=== PATIENT | female | born 1965 | race Caucasian/White ===

== ENCOUNTER 2018-09-29 08:40 | Emergency (ER) | payer OTHER ==
[~2018-09-29] VITALS: Ht 154.9 cm; Wt 63.0 kg
[~2018-09-29 08:40] MED LIST: ATOR40TA PO; Flovent Diskus50 MCG; GLIP10 PO; GLYB2.5 PO; HYDACE5 PO; INSULANPEN SC; INSULIN; LISI5 PO; METF500 PO; NAPR500 PO; PHENA200 PO; SULTRIDS PO
[2018-09-29] MEDS ORDERED: GEMF600 PO (09:00)
[2018-09-29] MEDS ORDERED: CARV6.25 (09:01)
[2018-09-29 09:36] LABS: BASOPHILS ABSOLUTE AUTO 0.07 K/mm3 (0.00-0.23); BASOPHILS PERCENT AUTO 1 % (0-2); EOSINOPHILS ABSOLUTE AUTO 0.12 K/mm3 (0.00-0.68); EOSINOPHILS PERCENT AUTO 1 % (0-6); Hematocrit 34.9 % (33.0-51.0); Hemoglobin 11.4 g/dL (11.5-16.0); IMMATURE GRAN ABSOLUTE AUTO 0.06 K/mm3 (0.00-0.10); IMMATURE GRAN PERCENT AUTO 1 % (0-1); LYMPHOCYTES ABSOLUTE AUTO 1.16 K/mm3 (0.84-5.20); LYMPHOCYTES PERCENT AUTO 10 % (21-46); MONOCYTES ABSOLUTE AUTO 0.94 K/mm3 (0.16-1.47); MONOCYTES PERCENT AUTO 8 % (4-13); Mean Corpuscular HGB 29.3 pg (26.0-34.0); Mean Corpuscular HGB Conc 32.7 g/dL (31.5-36.5); Mean Corpuscular Volume 90 fL (80-100); Mean Platelet Volume 9.2 fL (9.1-12.4); NEUTROPHILS ABSOLUTE AUTO 9.31 K/mm3 (1.96-9.15); NEUTROPHILS PERCENT AUTO 80 % (41-73); Platelet Count 375 K/mm3 (150-400); RDW Standard Deviation 42.5 fL (35.1-46.3); Red Blood Cell Count 3.89 M/mm3 (3.80-5.20); White Blood Cell Count 11.66 K/mm3 (4.00-11.30)
[2018-09-29 09:55] LABS: Albumin, Blood 3.1 g/dL (3.4-5.0); Albumin/Globulin Ratio 0.7 (0.8-1.8); Bilirubin, Total 0.3 mg/dL (0.1-1.0); Bun/Creatinine Ratio 20.7 (12.0-20.0); Creatinine, Blood 1.21 mg/dL (0.40-1.00); Globulin, Blood 4.6 g/dL (2.2-4.0); Potassium, Blood 4.7 mmol/L (3.5-5.5); Total Protein, Blood 7.7 g/dL (6.4-8.2)
[2018-09-29] MEDS ORDERED: Augmentin 875-1 EACH PO (10:06)
== END 2018-09-29 10:54 | disposition home or self-care (01) ==
LOC: ER 08:40
PROVIDERS: Internal Medicine
DX: J01.90 Acute sinusitis, unspecified (principal); E78.5 Hyperlipidemia, unspecified; I10 Essential (primary) hypertension; E11.9 Type 2 diabetes mellitus without complications; Z88.8 Allergy status to other drugs, medicaments and biological substances; Z79.4 Long term (current) use of insulin; Z79.899 Other long term (current) drug therapy; Z87.891 Personal history of nicotine dependence; Z88.5 Allergy status to narcotic agent
CPT/HCPCS: 36415; 71046; 80053; 85025; 93005; 93010; 99284-25; J0456; J7050

== ENCOUNTER → 2018-11-16 | Outpatient (CLI) | payer OTHER ==
[~2018-11-16] MED LIST changes: +Augmentin 875-1 EACH PO; +CARV6.25; +GEMF600 PO
[2018-11-18 13:28] LABS: Creatinine Urine 51.4 mg/dL (27.00-270.00)
== END | disposition home or self-care (01) ==
LOC: LAB SHORT 07:00 → LAB 07:00 → LAB SHORT 11-18 12:56
PROVIDERS: Internal Medicine
DX: N17.9 Acute kidney failure, unspecified (principal); R80.9 Proteinuria, unspecified
CPT/HCPCS: 81050; 82570; 84300

== ENCOUNTER → 2019-02-07 | Outpatient (CLI) | payer OTHER ==
[2019-02-07 10:42] LABS: Hematocrit 32.3 % (33.0-51.0); Hemoglobin 10.9 g/dL (11.5-16.0)
[2019-02-07 10:55] LABS: Albumin, Blood 2.8 g/dL (3.4-5.0); Anion Gap 7 mmol/L (6-16); Blood Urea Nitrogen 16 mg/dL (8-24); Bun/Creatinine Ratio 23.2 (12.0-20.0); CO2, Blood 28 mmol/L (21-32); Calcium, Blood 9.1 mg/dL (8.5-10.1); Chloride, Blood 107 mmol/L (98-108); Creatinine, Blood 0.69 mg/dL (0.40-1.00); Glomerular Filtration Rate >60 (60-); Glucose, Blood 75 mg/dL (70-99); Phosphorus, Blood 4.7 mg/dL (2.5-4.9); Potassium, Blood 3.9 mmol/L (3.5-5.5); Sodium, Blood 142 mmol/L (136-145)
[2019-02-07 12:44] LABS: Creatinine, Urine Random 66.1 mg/dL (27.00-270.00)
== END | disposition home or self-care (01) ==
LOC: LAB EV 09:34 → LAB SHORT 09:34
PROVIDERS: Internal Medicine
DX: N17.9 Acute kidney failure, unspecified (principal)
CPT/HCPCS: 36415; 80069; 82570; 84156; 85014; 85018

== ENCOUNTER → 2019-02-10 | Outpatient (CLI) | payer OTHER ==
[2019-02-10 15:06] LABS: Creatinine Urine 42.5 mg/dL (27.00-270.00); Protein, Urine Quantitative 214.5 mg/dL (0.0-11.9)
== END | disposition home or self-care (01) ==
LOC: LAB SHORT 13:22 → LAB 13:22
PROVIDERS: Internal Medicine
DX: N17.9 Acute kidney failure, unspecified (principal)
CPT/HCPCS: 81050; 82570; 84156

== ENCOUNTER → 2020-02-15 | Outpatient (CLI) | payer OTHER ==
[2020-02-17 15:09] LABS: HPV 16 Negative (Negative); HPV 18 Negative (Negative); HPV OTHER HR TYPES Negative (Negative)
== END ==
LOC: LAB 17:13 → LAB SHORT 17:13
PROVIDERS: Nurse Practitioner Family
DX: Z12.4 Encounter for screening for malignant neoplasm of cervix (principal); Z11.51 Encounter for screening for human papillomavirus (HPV)
CPT/HCPCS: 87624; G0123

== ENCOUNTER → 2020-08-29 | Outpatient (CLI) | payer OTHER ==
[~2020-08-29] MED LIST changes: +BASAGLAR K100 UNIT/1 SC; +LISI20 PO; +OZEMPIC0.25 MG/0. SC
[2020-08-29 11:35] LABS: Protein, Urine Quantitative 191.3 mg/dL (0.0-11.9)
== END | disposition home or self-care (01) ==
LOC: LAB 07:59 → LAB SHORT 07:59
PROVIDERS: Internal Medicine
DX: R80.8 Other proteinuria (principal)
CPT/HCPCS: 81050; 84156

== ENCOUNTER → 2023-07-16 | Outpatient (CLI) | payer OTHER ==
[2023-07-16 08:03] LABS: BASOPHILS ABSOLUTE AUTO 0.05 K/mm3 (0.00-0.23); BASOPHILS PERCENT AUTO 1 % (0-2); EOSINOPHILS ABSOLUTE AUTO 0.09 K/mm3 (0.00-0.68); EOSINOPHILS PERCENT AUTO 1 % (0-6); Hematocrit 37.9 % (33.0-51.0); Hemoglobin 12.6 g/dL (11.5-16.0); IMMATURE GRAN ABSOLUTE AUTO 0.04 K/mm3 (0.00-0.10); IMMATURE GRAN PERCENT AUTO 1 % (0-1); LYMPHOCYTES ABSOLUTE AUTO 1.29 K/mm3 (0.84-5.20); LYMPHOCYTES PERCENT AUTO 15 % (21-46); MONOCYTES ABSOLUTE AUTO 0.61 K/mm3 (0.16-1.47); MONOCYTES PERCENT AUTO 7 % (4-13); Mean Corpuscular HGB 29.1 pg (26.0-34.0); Mean Corpuscular HGB Conc 33.2 g/dL (31.5-36.5); Mean Corpuscular Volume 88 fL (80-100); Mean Platelet Volume 9.1 fL (9.1-12.4); NEUTROPHILS ABSOLUTE AUTO 6.43 K/mm3 (1.96-9.15); NEUTROPHILS PERCENT AUTO 75 % (41-73); Platelet Count 281 K/mm3 (150-400); RDW Coefficient Variation 13.3 % (11.7-14.2); RDW Standard Deviation 42.9 fL (35.1-46.3); Red Blood Cell Count 4.33 M/mm3 (3.80-5.20); White Blood Cell Count 8.51 K/mm3 (4.00-11.30)
[2023-07-16 09:06] LABS: Albumin, Blood 3.2 g/dL (3.4-5.0); Albumin/Globulin Ratio 0.9 (0.8-1.8); Bilirubin, Total 0.3 mg/dL (0.1-1.0); Bun/Creatinine Ratio 18.3 (12.0-20.0); Creatinine, Blood 1.2 mg/dL (0.40-1.00); Globulin, Blood 3.6 g/dL (2.2-4.0); Potassium, Blood 4.3 mmol/L (3.5-5.5); Total Protein, Blood 6.8 g/dL (6.4-8.2)
== END | disposition home or self-care (01) ==
LOC: LAB 07:58 → LAB SHORT 07:58
PROVIDERS: Chiropractor
DX: R07.89 Other chest pain (principal)
CPT/HCPCS: 80053; 84484; 85025

== ENCOUNTER 2025-07-06 10:30 | Inpatient (IN) | payer OTHER ==
[~2025-07-06] VITALS: Ht 154.9 cm; Wt 60.5 kg
[2025-07-06] VITALS (13 sets, daily range): BP systolic 148–201; BP diastolic 98–137
[~2025-07-06 10:30] MED LIST changes: -INSULANI
[2025-07-06] MEDS ORDERED: INSULANI (12:07)
[2025-07-06] MEDS ORDERED: FLU VACC TS2025-26(6MOS UP)/PF 45 MCG/0.5 ML SYRINGE IM SCH (12:25)
[2025-07-06] MEDS ORDERED: Metoprolol Tartrate 1 MG/ML 5 ML VIAL IV ONE (13:00)
[2025-07-06 13:15] LABS: Anti-Xa UFH, PHA Monitoring <0.10 IU/mL; Prothrombin Time Results 10.8 Sec (9.7-11.5)
[2025-07-06] MEDS ORDERED: Midazolam HCl 1MG / ML 2ML Vial IV PRN (13:25)
[2025-07-06] MEDS ORDERED: Dose Adjust by Pharmacy XX STA ×2 (13:28→15:20)
[2025-07-06] MEDS ORDERED: Heparin Sodium 5000 Units/ML 1ML MDV IV ONE (13:30)
[2025-07-06] MEDS ORDERED: FentaNYL Citrate 50 MCG/ML 2 ML Injection IV PRN (13:30)
[2025-07-06] MEDS ORDERED: Heparin Sodium,Porcine/0.5 NS 500 ML IV SCH (13:30)
[2025-07-06] MEDS ORDERED: Heparin Sodium 1000 Units/ML 10ML MDV ONE (13:35)
[2025-07-06] MEDS ORDERED: NS 250 ML IV ONE (13:35)
[2025-07-06] MEDS ORDERED: Verapamil HCL 2.5 MG/ML 2ML Injection ONE (13:35)
[2025-07-06] MEDS ORDERED: NS 1,000 ML IV ONE ×2 (13:35→13:50)
[2025-07-06] MEDS ORDERED: Nitroglycerin 2 MG/20 ML BTL ONE (13:35)
[2025-07-06] MEDS ORDERED: Nitroglycerin 1 INCH/GM PKT TOP SCH (14:00)
[2025-07-06] MEDS ORDERED: Midazolam HCl 1MG / ML 2ML Vial ONE (14:18)
[2025-07-06] MEDS ORDERED: FentaNYL Citrate 50 MCG/ML 2 ML Injection ONE (14:18)
[2025-07-06] MEDS ORDERED: NS 250 ML IV SCH (15:05)
[2025-07-06 15:39] LABS: CHOL/HDL RATIO 5.5; Cholesterol 290 mg/dL (50-200); HDL Cholesterol 53 mg/dL (>39); LDL/HDL RATIO 3.4; Low Density Lipoprotein Chol 179 mg/dL (0-110); Triglycerides 292 mg/dL (30-160); Very Low Density Lipoprot Chol 58 mg/dL (6-32)
--- NOTE | 2025-07-06 16:17 | NUR ---
[facility], TR band in place on the right wrist. Site is without bleeding, hematoma, bruising nor swelling, as it has been since her arrival. She denies any pain in the arm or hand. fingers are warm, with brisk cap refill. She denies any chest pain/discomfort/tightness/pressure, no dyspnea nor shortness of breath. Sinus rhythm noted on monitor, 70 bpm. Blood pressure is high, 175/101. Spo2 98%.
[2025-07-06] MEDS ORDERED: Insulin Human Lispro 100 Units/ML 3ML Syringe SC SCH (16:30)
--- NOTE | 2025-07-06 18:14 | NUR ---
blood pressure was normalizing, but has become elevated again. 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 Next ntg patch scheduled for 2099, but given now; also given scheduled IV lasix at this time.
[2025-07-06] MEDS ORDERED: HydrALAZINE HCl 20 MG / ML 1ML Vial ONE (18:27)
[2025-07-06] MEDS ORDERED: HydrALAZINE HCl 20 MG / ML 1ML Vial IV ONE (18:35)
--- NOTE | 2025-07-06 18:43 | NUR ---
Telephone report given to Michi at [facility] at this time. Expecting transport to arrive at any time. Dr. Rodriguez was here at 1820 to talk with the patient and her about the reason for transfer.
--- NOTE | 2025-07-06 18:53 | NUR ---
TR band is fully deflated. Site remains WNL.
--- NOTE | 2025-07-06 19:53 | NUR ---
PATIENT TAKEN BY MEDICAL TRANSPORT FOR TRANSFER TO [facility]. PATIENT ALERT AND ORIENTED X4, DENIES CHEST PAIN. TR BAND REMOVED WITH NO SIGNS OF BLEEDING. PATIENT TRANSFERRED ON HEPARIN DRIP.
== END 2025-07-06 19:49 | disposition short-term general hospital (02) | DRG 280 ==
LOC: ER 10:30 → PCU 12:19
PROVIDERS: ADMIT Student in an Organized Health Care Education/Training Program
PROC: B2111ZZ Fluoroscopy of Multiple Coronary Arteries using Low Osmolar Contrast (ICD-10-PCS; principal; 2025-07-06)
PROC: 3E02340 Introduction of Influenza Vaccine into Muscle, Percutaneous Approach (ICD-10-PCS; 2025-07-06)
DX: I21.4 Non-ST elevation (NSTEMI) myocardial infarction (principal); I50.31 Acute diastolic (congestive) heart failure; E87.20 Acidosis, unspecified; I13.0 Hypertensive heart and chronic kidney disease with heart failure and stage 1 through stage 4 chronic kidney disease, or unspecified chronic kidney disease; N18.4 Chronic kidney disease, stage 4 (severe); I16.1 Hypertensive emergency; N17.9 Acute kidney failure, unspecified; E11.22 Type 2 diabetes mellitus with diabetic chronic kidney disease; E78.5 Hyperlipidemia, unspecified; I25.10 Atherosclerotic heart disease of native coronary artery without angina pectoris; Z79.85 Long-term (current) use of injectable non-insulin antidiabetic drugs; Z79.899 Other long term (current) drug therapy; Z79.4 Long term (current) use of insulin; Z79.84 Long term (current) use of oral hypoglycemic drugs; Z98.891 History of uterine scar from previous surgery; Z98.41 Cataract extraction status, right eye; Z98.42 Cataract extraction status, left eye; Z87.891 Personal history of nicotine dependence; Z88.8 Allergy status to other drugs, medicaments and biological substances; Z88.5 Allergy status to narcotic agent; Z23 Encounter for immunization
CPT/HCPCS: 76937; 80061; 82947; 83880; 84484; 85520; 85610; 85730; 93005; 93010; 93458; 94762; 96374-59; 99152; 99285-25; A9270; C1769; C1894; C8929; J0360; J1644; J1938; J2250; J3010; J7030; J7050; Q9957; Q9967

== ENCOUNTER → 2025-07-06 | Outpatient (CLI) | payer OTHER ==
[~2025-07-06] MED LIST changes: +INSULANI
[2025-07-06 08:30] LABS: BASOPHILS ABSOLUTE AUTO 0.04 K/mm3 (0.00-0.23); BASOPHILS PERCENT AUTO 1 % (0-2); EOSINOPHILS ABSOLUTE AUTO 0.19 K/mm3 (0.00-0.68); EOSINOPHILS PERCENT AUTO 2 % (0-6); Hematocrit 33.4 % (33.0-51.0); Hemoglobin 10.9 g/dL (11.5-16.0); IMMATURE GRAN ABSOLUTE AUTO 0.04 K/mm3 (0.00-0.10); IMMATURE GRAN PERCENT AUTO 1 % (0-1); LYMPHOCYTES ABSOLUTE AUTO 1.11 K/mm3 (0.84-5.20); LYMPHOCYTES PERCENT AUTO 14 % (21-46); MONOCYTES ABSOLUTE AUTO 0.63 K/mm3 (0.16-1.47); MONOCYTES PERCENT AUTO 8 % (4-13); Mean Corpuscular HGB Conc 32.6 g/dL (31.5-36.5); Mean Corpuscular Volume 86 fL (80-100); NEUTROPHILS ABSOLUTE AUTO 6.21 K/mm3 (1.96-9.15); NEUTROPHILS PERCENT AUTO 76 % (41-73); NRBC ABSOLUTE 0.00 K/mm3 (0.00-0.02); NRBC Auto 0.0 /100 WBC (0.0-0.2); Platelet Count 273 K/mm3 (150-400); RDW Coefficient Variation 14.0 % (11.7-14.2); RDW Standard Deviation 43.6 fL (35.1-46.3)
[2025-07-06 10:14] LABS: Alanine Aminotransfer (ALT/SGP 35.0 U/L (12-78); Albumin, Blood 2.9 g/dL (3.4-5.0); Albumin/Globulin Ratio 0.8 (0.8-1.8); Anion Gap 12.0 mmol/L (3-11); Aspartate Aminotrans (AST/SGOT 28.0 U/L (12-37); Bilirubin, Total 0.3 mg/dL (0.1-1.0); Blood Urea Nitrogen 41.0 mg/dL (8-24); CO2, Blood 20.0 mmol/L (21-32); Calcium, Blood 8.9 mg/dL (8.5-10.1); Chloride, Blood 113.0 mmol/L (98-108); Creatinine, Blood 3.27 mg/dL (0.40-1.00); Globulin, Blood 3.7 g/dL (2.2-4.0); Glucose, Blood 107.0 mg/dL (70-99); Potassium, Blood 4.5 mmol/L (3.5-5.5); Sodium, Blood 140.0 mmol/L (136-145); Thyroid Stimulating Hormone 2.31 uIU/mL (0.360-4.800); Total Protein, Blood 6.6 g/dL (6.4-8.2)
== END | disposition home or self-care (01) ==
LOC: LAB SHORT 08:24 → LAB 08:24
PROVIDERS: Physician Assistant
DX: R53.83 Other fatigue (principal)
CPT/HCPCS: 80053; 83036; 84443; 84484; 85025; 85379

== ENCOUNTER 2025-07-19 07:28 | Inpatient (IN) | payer OTHER ==
[~2025-07-19] VITALS: Ht 154.9 cm; Wt 62.0 kg
[~2025-07-19 07:28] MED LIST changes: -ATOR40TA PO; +ATOR80 PO; +INSULANI SC
[2025-07-19] MEDS ORDERED: Nitroglycerin 1 INCH/GM PKT TOP ONE (07:40)
[2025-07-19 07:55] LABS: BASOPHILS ABSOLUTE AUTO 0.06 K/mm3 (0.00-0.23); BASOPHILS PERCENT AUTO 1 % (0-2); EOSINOPHILS ABSOLUTE AUTO 0.30 K/mm3 (0.00-0.68); EOSINOPHILS PERCENT AUTO 3 % (0-6); Hematocrit 27.9 % (33.0-51.0); Hemoglobin 9.0 g/dL (11.5-16.0); IMMATURE GRAN ABSOLUTE AUTO 0.03 K/mm3 (0.00-0.10); IMMATURE GRAN PERCENT AUTO 0 % (0-1); LYMPHOCYTES ABSOLUTE AUTO 0.96 K/mm3 (0.84-5.20); LYMPHOCYTES PERCENT AUTO 11 % (21-46); MONOCYTES ABSOLUTE AUTO 0.87 K/mm3 (0.16-1.47); MONOCYTES PERCENT AUTO 10 % (4-13); Mean Corpuscular HGB Conc 32.3 g/dL (31.5-36.5); Mean Corpuscular Volume 89 fL (80-100); NEUTROPHILS ABSOLUTE AUTO 6.73 K/mm3 (1.96-9.15); NEUTROPHILS PERCENT AUTO 75 % (41-73); NRBC ABSOLUTE 0.00 K/mm3 (0.00-0.02); NRBC Auto 0.0 /100 WBC (0.0-0.2); Platelet Count 283 K/mm3 (150-400); RDW Coefficient Variation 14.7 % (11.7-14.2); RDW Standard Deviation 46.4 fL (35.1-46.3)
[2025-07-19 08:28] LABS: Alanine Aminotransfer (ALT/SGP 57.0 U/L (12-78); Albumin, Blood 3.0 g/dL (3.4-5.0); Albumin/Globulin Ratio 0.9 (0.8-1.8); Anion Gap 10.0 mmol/L (3-11); Aspartate Aminotrans (AST/SGOT 19.0 U/L (12-37); Bilirubin, Total 0.4 mg/dL (0.1-1.0); Blood Urea Nitrogen 66.0 mg/dL (8-24); CO2, Blood 22.0 mmol/L (21-32); Calcium, Blood 8.5 mg/dL (8.5-10.1); Chloride, Blood 109.0 mmol/L (98-108); Creatinine, Blood 4.01 mg/dL (0.40-1.00); Globulin, Blood 3.4 g/dL (2.2-4.0); Glucose, Blood 226.0 mg/dL (70-99); Potassium, Blood 4.7 mmol/L (3.5-5.5); Sodium, Blood 136.0 mmol/L (136-145); Total Protein, Blood 6.4 g/dL (6.4-8.2)
[2025-07-19] MEDS ORDERED: FLU VACC TS2025-26(6MOS UP)/PF 45 MCG/0.5 ML SYRINGE IM SCH ×2 (11:10→11:25)
[2025-07-19] MEDS ORDERED: Albuterol 2.5 MG/3 ML VIAL INH SCH (12:00)
[2025-07-19 12:50] LABS: Influenza A/2009-H1 Not Detected (NOT DETECT); SARS-Cov-2 (COVID-19), BioFire Not Detected (NOT DETECT)
[2025-07-19 13:25] VITALS: BP 155/89
[2025-07-19] MEDS ORDERED: AMLODIPINE BESYL5 MG PO (13:30)
[2025-07-19] MEDS ORDERED: Aspir 8181 MG PO (13:31)
[2025-07-19] MEDS ORDERED: CARVEDILOL6.25 MG PO (13:32)
[2025-07-19] MEDS ORDERED: PLAVIX75 MG PO (13:33)
[2025-07-19] MEDS ORDERED: FAMO20 PO (13:35)
[2025-07-19] MEDS ORDERED: FUROSEMIDE40 MG PO (13:35)
[2025-07-19] MEDS ORDERED: ISOSORBIDE MONO30 MG PO (13:36)
[2025-07-19] MEDS ORDERED: NITROGLYCERIN0.4 M3 SL (13:37)
[2025-07-19] MEDS ORDERED: SODBIC650 PO (13:38)
[2025-07-19] MEDS ORDERED: HYDRA50 PO (13:38)
[2025-07-19] MEDS ORDERED: ROPINIROLE HC0.2510 PO (13:44)
[2025-07-19] MEDS ORDERED: Heparin Sodium,Porcine 5,000 UNIT/0.5 ML SDV SC SCH (14:00)
--- NOTE | 2025-07-19 15:19 | NUR ---
PALLIATIVE CARE NOTE: CONSULT RECEIVED FOR AD/POLST. REVIEWED MEDICAL RECORD. NO POLST OR AD ON FILE OR WITH OPR.
[2025-07-19 16:25] VITALS: BP 167/89
[2025-07-19] MEDS ORDERED: Insulin Human Lispro 100 Units/ML 3ML Syringe SC SCH ×2 (16:30→18:00)
--- NOTE | 2025-07-19 18:39 | NUR ---
SHIFT SUMMARY; ASSUMED CARE FROM ER FOR ADMIT. A/A/OX4, INDEPENDANT IN ROOM. NEPHRO CONSULT COMPLETED. MEDS PER EMAR, VSS. REPORTS INTERMITANT SOB, SATS >94% ON RA. WILL CONTINUE TO MONITOR AND TREAT UNTIL REPORT GIVEN TO NOC SHIFT RN.
[2025-07-19 20:07] VITALS: BP 139/82
[2025-07-19 20:51] LABS: Anion Gap 9.0 mmol/L (3-11); Blood Urea Nitrogen 66.0 mg/dL (8-24); CO2, Blood 24.0 mmol/L (21-32); Calcium, Blood 8.6 mg/dL (8.5-10.1); Chloride, Blood 106.0 mmol/L (98-108); Creatinine, Blood 4.08 mg/dL (0.40-1.00); Glucose, Blood 197.0 mg/dL (70-99); Potassium, Blood 4.4 mmol/L (3.5-5.5); Sodium, Blood 135.0 mmol/L (136-145)
[2025-07-19] MEDS ORDERED: Heparin Sodium 5000 Units/ML 1ML MDV IV SCH (21:00)
[2025-07-19] MEDS ORDERED: Insulin Glargine 100 Unit/ML 3 ML SYR SC SCH ×2 (21:00)
[2025-07-19] MEDS ORDERED: Insulin Glargine-Yfgn 100 Unit/mL 3 ML SYR SC SCH (21:00)
[2025-07-19 23:12] VITALS: BP 142/93
[2025-07-20 03:27] VITALS: BP 138/90
[2025-07-20 04:01] LABS: BASOPHILS ABSOLUTE AUTO 0.06 K/mm3 (0.00-0.23); BASOPHILS PERCENT AUTO 1 % (0-2); EOSINOPHILS ABSOLUTE AUTO 0.31 K/mm3 (0.00-0.68); EOSINOPHILS PERCENT AUTO 4 % (0-6); Hematocrit 28.9 % (33.0-51.0); Hemoglobin 9.3 g/dL (11.5-16.0); IMMATURE GRAN ABSOLUTE AUTO 0.03 K/mm3 (0.00-0.10); IMMATURE GRAN PERCENT AUTO 0 % (0-1); LYMPHOCYTES ABSOLUTE AUTO 1.20 K/mm3 (0.84-5.20); LYMPHOCYTES PERCENT AUTO 15 % (21-46); MONOCYTES ABSOLUTE AUTO 0.82 K/mm3 (0.16-1.47); MONOCYTES PERCENT AUTO 10 % (4-13); Mean Corpuscular HGB Conc 32.2 g/dL (31.5-36.5); Mean Corpuscular Volume 86 fL (80-100); NEUTROPHILS ABSOLUTE AUTO 5.62 K/mm3 (1.96-9.15); NEUTROPHILS PERCENT AUTO 70 % (41-73); NRBC ABSOLUTE 0.00 K/mm3 (0.00-0.02); NRBC Auto 0.0 /100 WBC (0.0-0.2); Platelet Count 318 K/mm3 (150-400); RDW Coefficient Variation 14.5 % (11.7-14.2); RDW Standard Deviation 44.4 fL (35.1-46.3)
[2025-07-20 04:21] LABS: Prothrombin Time Results 10.9 Sec (9.7-11.5)
[2025-07-20 04:24] LABS: Alanine Aminotransfer (ALT/SGP 49.0 U/L (12-78); Albumin, Blood 3.0 g/dL (3.4-5.0); Albumin/Globulin Ratio 0.8 (0.8-1.8); Anion Gap 10.0 mmol/L (3-11); Aspartate Aminotrans (AST/SGOT 17.0 U/L (12-37); Bilirubin, Total 0.4 mg/dL (0.1-1.0); Blood Urea Nitrogen 65.0 mg/dL (8-24); CO2, Blood 24.0 mmol/L (21-32); Calcium, Blood 8.9 mg/dL (8.5-10.1); Chloride, Blood 104.0 mmol/L (98-108); Creatinine, Blood 4.03 mg/dL (0.40-1.00); Globulin, Blood 3.8 g/dL (2.2-4.0); Glucose, Blood 147.0 mg/dL (70-99); Magnesium, Blood 2.2 mg/dL (1.6-2.4); Phosphorus, Blood 6.3 mg/dL (2.5-4.9); Potassium, Blood 4.2 mmol/L (3.5-5.5); Sodium, Blood 134.0 mmol/L (136-145); Total Iron Binding Capacity 311.0 ug/dL (250-450); Total Protein, Blood 6.8 g/dL (6.4-8.2)
--- NOTE | 2025-07-20 06:06 | NUR ---
SHIFT SUMMARY PATIENT ALERT AND ORIENTED X4 HAD NO COMPLAINTS OF PAIN OR SHORTNESS OF BREATH. ON ROOM AIR WITH SPO2 >90%. VITAL SIGNS STABLE. NO ACUTE ISSUES NOTED OVERNIGHT. WILL CONTINUE TO MONITOR. CALL LIGHT WITHIN REACH.
[2025-07-20 07:49] VITALS: BP 155/84
[2025-07-20] MEDS ORDERED: Isosorbide Mononitrate 30 MG TABCR PO SCH (09:00)
[2025-07-20 12:16] VITALS: BP 126/75
[2025-07-20] MEDS ORDERED: Sod Ferric Gluc Complx/Sucrose 125 MG in NS 100 ML IV SCH (15:00)
[2025-07-20 15:20] VITALS: BP 152/88
--- NOTE | 2025-07-20 17:40 | NUR ---
SHIFT SUMMARY; ASSUMED CARE AT 0700. A/A/OX4 DURING SHIFT. INDEPENDANT IN ROOM. L/S CLEAR T/O. REPORTS FEELING MUCH BETTER THAN PREVIOUS DAY, DENIES SOB. VSS, SATS MAINTAINED >96% ON RA. INSULIN PER EMAR. WILL CONTINUE TO MONITOR AND TREAT UNTIL REPORT GIVEN TO NOC SHIFT RN.
[2025-07-20 20:28] VITALS: BP 135/76
[2025-07-21 00:28] VITALS: BP 133/81
[2025-07-21 04:26] LABS: Hematocrit 29.1 % (33.0-51.0); Hemoglobin 9.5 g/dL (11.5-16.0); Mean Corpuscular HGB Conc 32.6 g/dL (31.5-36.5); Mean Corpuscular Volume 85 fL (80-100); NRBC ABSOLUTE 0.00 K/mm3 (0.00-0.02); NRBC Auto 0.0 /100 WBC (0.0-0.2); Platelet Count 283 K/mm3 (150-400); RDW Coefficient Variation 14.1 % (11.7-14.2); RDW Standard Deviation 43.7 fL (35.1-46.3)
[2025-07-21 04:44] VITALS: BP 133/81
[2025-07-21 04:48] LABS: Albumin, Blood 2.9 g/dL (3.4-5.0); Anion Gap 14 mmol/L (3-11); Blood Urea Nitrogen 64 mg/dL (8-24); CO2, Blood 22 mmol/L (21-32); Calcium, Blood 8.3 mg/dL (8.5-10.1); Chloride, Blood 104 mmol/L (98-108); Creatinine, Blood 4.61 mg/dL (0.40-1.00); Glucose, Blood 117 mg/dL (70-99); Magnesium, Blood 2.1 mg/dL (1.6-2.4); Phosphorus, Blood 6.9 mg/dL (2.5-4.9); Potassium, Blood 3.9 mmol/L (3.5-5.5); Sodium, Blood 136 mmol/L (136-145)
--- NOTE | 2025-07-21 05:19 | NUR ---
SHIFT SUMMARY PT IS ALERT ORIENTED X 4 PLEASANT AND COOPERATIVE WITH CARE. VSS ON RA SATS 93-97%. NSR AT 77 WITH BBB. TAKES MEDS WHOLE WITH WATER. TOLERATING A CONSISTENT CARB DIET. GETS UP AD JIMBO IN ROOM VOIDED 700ML OF YELLOW CLEAR URINE. RESTING IN BED AT THIS TIME WITH BED IN LOWEST POSITION CALL LIGHT IN REACH SHE'S ABLE TO VERBALIZE NEEDS AND CALLS APPROPRIATELY. POSSIBLE DC TO HOME TODAY.
[2025-07-21 08:02] VITALS: BP 138/79
--- NOTE | 2025-07-21 08:33 | NUR ---
ASSUMPTION OF CARE: REPORT FROM JAZMYN CASEY RN TO ASSUME CARE OF PT. PT SITTING UP IN BED WITH AT BEDSIDE. DENIES ANY COMPLAINTS AT THIS TIME. CALL LIGHT IN REACH.
[2025-07-21] MEDS ORDERED: Iron Dextran 50 MG / ML 2ML Vial IV ONE (10:00)
[2025-07-21] MEDS ORDERED: Iron Dextran 975 MG in NS 250 ML IV ONE (11:00)
--- NOTE | 2025-07-21 11:58 | NUR ---
SHIFT SUMMARY: PT A&OX4. FOLLOWS COMMANDS AND MAKES NEEDS KNOWN TO STAFF. PT HAS BEEN INDEPENDENT IN THE ROOM. AT BEDSIDE. DENIES ANY COMPLIANTS OF CP, PRESSURE, TIGHTNESS OR SOB. PLAN FOR DISCHARGE TODAY. NO SIGNIFICANT EVENTS HAPPENED DURING THIS SHIFT. REPORT TO WILLIE Sun TO ASSUME CARE OF PT.
[2025-07-21 12:49] VITALS: BP 117/71
[2025-07-21] MEDS ORDERED: SOAANZ40 M1 PO (12:58)
--- NOTE | 2025-07-21 14:28 | NUR ---
DISHCARGE SUMMARY: BP AND WORK OTE GIVEN TO BY RESIDENT, NO ACUTE CONCERNS AT DISCHARGEHAD FINISHED INFED. DISCHARGE EDUCATION PROVIDED BY BREAK RN. PATIENT AND AGREEABLE TO DISCHARGE AND UNDERSTAND EDUCATION PROVIDED, PALIATIVE CARE SEEN PRIOR TO DISHCARGE NO ACUTE CONCERNS NOTE ADDRESSED. IV AND TELE REMOVED BY VINICIO RN. PATIENT IN ONACUTE DISTRESS.
[2025-07-22 22:57] LABS: QUANTIFERON MITOGEN MINUS NIL 9.99 IU/mL; QUANTIFERON NIL 0.01 IU/mL; QUANTIFERON PLUS TB1 MINUS NIL 0.03 IU/mL (<=0.34); QUANTIFERON PLUS TB2 MINUS NIL 0.06 IU/mL (<=0.34)
== END 2025-07-21 14:20 | disposition home or self-care (01) | DRG 280 ==
LOC: ER 07:28 → PCU 11:20 → ER 13:20 → PCU 13:21
PROVIDERS: Emergency Medicine; Hospitalist; Student in an Organized Health Care Education/Training Program; ADMIT Hospitalist
DX: I13.0 Hypertensive heart and chronic kidney disease with heart failure and stage 1 through stage 4 chronic kidney disease, or unspecified chronic kidney disease (principal); I50.33 Acute on chronic diastolic (congestive) heart failure; I21.4 Non-ST elevation (NSTEMI) myocardial infarction; N17.9 Acute kidney failure, unspecified; N18.4 Chronic kidney disease, stage 4 (severe); I25.10 Atherosclerotic heart disease of native coronary artery without angina pectoris; D63.1 Anemia in chronic kidney disease; D50.9 Iron deficiency anemia, unspecified; E78.5 Hyperlipidemia, unspecified; E11.22 Type 2 diabetes mellitus with diabetic chronic kidney disease; K21.9 Gastro-esophageal reflux disease without esophagitis; T50.1X6A Underdosing of loop [high-ceiling] diuretics, initial encounter; Z91.138 Patient's unintentional underdosing of medication regimen for other reason; Z88.8 Allergy status to other drugs, medicaments and biological substances; Z95.5 Presence of coronary angioplasty implant and graft; Z88.5 Allergy status to narcotic agent; Z79.4 Long term (current) use of insulin; Z79.84 Long term (current) use of oral hypoglycemic drugs; Z87.891 Personal history of nicotine dependence; Z79.82 Long term (current) use of aspirin; Z79.02 Long term (current) use of antithrombotics/antiplatelets
CPT/HCPCS: 0202U; 36415; 71045; 71046; 80048; 80053; 80069; 82728; 82947; 83540; 83550; 83735; 83880; 84100; 84484; 85025; 85027; 85610; 85651; 87340; 93005; 93010; 94762; 96374; 99285-25; A9270; J1644; J1750; J1815; J1938; J2916; J7050

== ENCOUNTER 2025-08-15 12:19 | Inpatient (IN) | payer OTHER ==
[~2025-08-15] VITALS: Ht 154.9 cm; Wt 58.5 kg
[~2025-08-15 12:19] MED LIST changes: +AMLODIPINE BESYL5 MG PO; +Aspir 8181 MG PO; +CARVEDILOL6.25 MG PO; +FAMO20 PO; +FUROSEMIDE40 MG PO; +HYDRA50 PO; +ISOSORBIDE MONO30 MG PO; +NITROGLYCERIN0.4 M3 SL; +PLAVIX75 MG PO; +ROPINIROLE HC0.2510 PO; +SOAANZ40 M1 PO; +SODBIC650 PO
[2025-08-15 12:47] LABS: BASOPHILS ABSOLUTE AUTO 0.07 K/mm3 (0.00-0.23); BASOPHILS PERCENT AUTO 1 % (0-2); EOSINOPHILS ABSOLUTE AUTO 0.31 K/mm3 (0.00-0.68); EOSINOPHILS PERCENT AUTO 4 % (0-6); Hematocrit 29.6 % (33.0-51.0); Hemoglobin 9.7 g/dL (11.5-16.0); IMMATURE GRAN ABSOLUTE AUTO 0.02 K/mm3 (0.00-0.10); IMMATURE GRAN PERCENT AUTO 0 % (0-1); LYMPHOCYTES ABSOLUTE AUTO 1.01 K/mm3 (0.84-5.20); LYMPHOCYTES PERCENT AUTO 12 % (21-46); MONOCYTES ABSOLUTE AUTO 0.92 K/mm3 (0.16-1.47); MONOCYTES PERCENT AUTO 11 % (4-13); Mean Corpuscular HGB Conc 32.8 g/dL (31.5-36.5); Mean Corpuscular Volume 86 fL (80-100); NEUTROPHILS ABSOLUTE AUTO 6.27 K/mm3 (1.96-9.15); NEUTROPHILS PERCENT AUTO 73 % (41-73); NRBC ABSOLUTE 0.00 K/mm3 (0.00-0.02); NRBC Auto 0.0 /100 WBC (0.0-0.2); Platelet Count 316 K/mm3 (150-400); RDW Coefficient Variation 13.3 % (11.7-14.2); RDW Standard Deviation 41.8 fL (35.1-46.3)
[2025-08-15 13:17] LABS: Alanine Aminotransfer (ALT/SGP 19.0 U/L (12-78); Albumin, Blood 2.9 g/dL (3.4-5.0); Albumin/Globulin Ratio 0.7 (0.8-1.8); Anion Gap 12.0 mmol/L (3-11); Aspartate Aminotrans (AST/SGOT 15.0 U/L (12-37); Bilirubin, Total 0.4 mg/dL (0.1-1.0); Blood Urea Nitrogen 58.0 mg/dL (8-24); CO2, Blood 22.0 mmol/L (21-32); Calcium, Blood 8.7 mg/dL (8.5-10.1); Chloride, Blood 104.0 mmol/L (98-108); Creatinine, Blood 5.24 mg/dL (0.40-1.00); Globulin, Blood 3.9 g/dL (2.2-4.0); Glucose, Blood 177.0 mg/dL (70-99); Potassium, Blood 3.6 mmol/L (3.5-5.5); Sodium, Blood 134.0 mmol/L (136-145); Total Protein, Blood 6.8 g/dL (6.4-8.2)
[2025-08-15] MEDS ORDERED: Insulin Regular 100 Unit/ML 1ML Dose IV ONE (15:50)
[2025-08-15] MEDS ORDERED: Bumetanide 0.25 MG/ML 10ML Vial IV ONE (16:05)
[2025-08-15] MEDS ORDERED: FLU VACC TS2025-26(6MOS UP)/PF 45 MCG/0.5 ML SYRINGE IM SCH (16:50)
[2025-08-15] MEDS ORDERED: Polyethylene Glycol 3350 17 gm PO PRN (16:50)
--- NOTE | 2025-08-15 18:39 | NUR ---
THIS RN CALLED AND RECEIVED REPORT FROM TONI OF ED AT APPROX 1750.
[2025-08-15 19:22] VITALS: BP 151/79
[2025-08-15] MEDS ORDERED: Docusate Sodium/Senna 1 Tab PO SCH (21:00)
[2025-08-15] MEDS ORDERED: Heparin Sodium,Porcine 5,000 UNIT/0.5 ML SDV SC SCH (21:00)
[2025-08-16] VITALS (7 sets, daily range): BP systolic 132–148; BP diastolic 68–82
[2025-08-16 06:11] LABS: Hematocrit 27.6 % (33.0-51.0); Hemoglobin 9.2 g/dL (11.5-16.0); Mean Corpuscular HGB Conc 33.3 g/dL (31.5-36.5); Mean Corpuscular Volume 87 fL (80-100); NRBC ABSOLUTE 0.00 K/mm3 (0.00-0.02); NRBC Auto 0.0 /100 WBC (0.0-0.2); Platelet Count 318 K/mm3 (150-400); RDW Coefficient Variation 13.2 % (11.7-14.2); RDW Standard Deviation 42.1 fL (35.1-46.3)
[2025-08-16 06:51] LABS: Albumin, Blood 2.4 g/dL (3.4-5.0); Anion Gap 13 mmol/L (3-11); Blood Urea Nitrogen 57 mg/dL (8-24); CO2, Blood 21 mmol/L (21-32); Calcium, Blood 8.6 mg/dL (8.5-10.1); Chloride, Blood 104 mmol/L (98-108); Creatinine, Blood 5.11 mg/dL (0.40-1.00); Ferritin, Serum 482 ng/mL (8-252); Glucose, Blood 153 mg/dL (70-99); Magnesium, Blood 1.9 mg/dL (1.6-2.4); Phosphorus, Blood 4.9 mg/dL (2.5-4.9); Potassium, Blood 3.8 mmol/L (3.5-5.5); Sodium, Blood 134 mmol/L (136-145); Thyroid Stimulating Hormone 1.860 uIU/mL (0.360-4.800); Total Iron Binding Capacity 130 ug/dL (250-450)
[2025-08-16] MEDS ORDERED: Insulin Human Lispro 100 Units/ML 3ML Syringe SC SCH (07:30)
--- NOTE | 2025-08-16 07:49 | NUR ---
SHIFT SUMMARY PATIENT A&OX4, ABLE TO MAKE NEEDS KNOWN, HAS NOT SLEPT WELL T/O SHIFT, MEDICATED PER EMAR FOR PAIN, INSOMNIA, AND COUGH. PASSED IN REPORT TO DAY SHIFT NURSE THAT THE PATIENT WAS SUPPOSED TO HAVE A DIALYSIS APPOINTMENT MOST LIKELY A PORT TODAY IN [place] SO NEPHROLOGY MIGHT NEED TO BE CONSULTED DUE TO LABS. HAD TIGHTNESS IN CHEST BUT DENIED ANY OTHER SYMPTOM OF TYPICAL CARDIAC EVENTS AND DOCTOR ALERTED TO THE CHANGED AND [place] MEDICATED PER EMAR. PATIENT SOB HAS GOTTEN BETTER TOWARDS LATTER END OF SHIFT. BED AT LOWEST LEVEL, BED RAILS X2, CALL LIGHT WITHIN REACH
[2025-08-16] MEDS ORDERED: Epoetin Alfa-EPBX 10,000 Unit/ML 1ML Vial SC SCH (13:00)
--- NOTE | 2025-08-16 18:50 | NUR ---
END OF SHIFT NOTE PATIENT RESTING IN CHAIR. A&O4, IND IN ROOM AND TO BATHROOM. IV FLUSHED AND SL. PATIENT ABLE TO MAKE NEEDS KNOWN. SHOWERED TODAY IND, PATIENT UNDERSTANDS PLAN FROM DOCTORS VISITING TODAY. DENIES NEEDS. NO OTHER CONCERNS FOR THIS SHIFT.
[2025-08-17] VITALS (18 sets, daily range): BP systolic 126–154; BP diastolic 71–96
[2025-08-17 05:40] LABS: Prothrombin Time Results 11.4 Sec (9.7-11.5)
--- NOTE | 2025-08-17 05:46 | NUR ---
SUMMARY: PT A/OX4, IS INDEPENDENT IN ROOM AND PLEASANT AND COOPERATIVE W/CARE. SHE ENDORSES NEEDS BUT DENIED COMPLAINTS T/O NOCTE OTHER THAN REQUIRING MELATONIN AT HS FOR SLEEP. SHE WAS MADE NPO AT [place] FOR POSSIBLE DIALYSIS PORT PLACEMENT, IR CX IS PENDING BUT WAS CALLED BY DAY RN. SHE REMAINS ON TELE IN NSR AT 80'S BPM. NO ACUTE CHANGES, VSS/AFEBRILE. WILL REPORT TO DAY RN.
[2025-08-17] MEDS ORDERED: FentaNYL Citrate 50 MCG/ML 2 ML Injection ONE (10:58)
[2025-08-17] MEDS ORDERED: Midazolam HCl 1MG / ML 2ML Vial ONE (10:58)
[2025-08-17] MEDS ORDERED: NS 500 ML IV ONE ×2 (10:58→11:06)
[2025-08-17] MEDS ORDERED: Heparin Sodium 1000 Units/ML 10ML MDV ONE (11:30)
--- NOTE | 2025-08-17 12:32 | NUR ---
PT BACK FROM INTERVENTIONAL RADIOLOGY POST HD CATH PLACEMENT TO R CHEST. SITE WNL SCANT BLOOD NOTED UNDER DRESSING. NOT ACTIVELY BLEEDING. PAIN IS 1-2/10 PRN TYLENOL GIVEN ORDERED. FIRST DIALYSIS TREATMENT TO BE LATER TODAY.
--- NOTE | 2025-08-17 18:55 | NUR ---
SHIFT SUMMARY PT GOT R CHEST PERMACATH PLACED TODAY BY DR. LEVAITT AND HAD FIRST HEMODIALYIS TREATMENT TODAY. SHE TOLERATED WELL. BACK ON CONSISTANT CARB DIET. IV DIURETICS ADMINISTERED ORDERED. MONITORING INTAKE AND OUTPUT.
[2025-08-18] VITALS (15 sets, daily range): BP systolic 113–155; BP diastolic 66–93
--- NOTE | 2025-08-18 03:49 | NUR ---
SHIFT SUMMARY PT A&OX4. ABLE TO MAKE NEEDS KNOWN. PLEASANT AND COOPERATIVE WITH CARES. COMPLAINTS OF PAINFUL R PERMACATH, MEDICATED PER NOV. PT SLEPT THROUGHOUT THE NIGHT. INDEPENDENT IN ROOM. LAC PIV/SALINE LOCKED. TELEMETRY/SINUS RHYTHM. VSS. BED IN LOWEST POSITION. CALL LIGHT IN PLACE.
[2025-08-18 06:44] LABS: Albumin, Blood 2.4 g/dL (3.4-5.0); Anion Gap 10 mmol/L (3-11); Blood Urea Nitrogen 31 mg/dL (8-24); CO2, Blood 28 mmol/L (21-32); Calcium, Blood 8.7 mg/dL (8.5-10.1); Chloride, Blood 101 mmol/L (98-108); Creatinine, Blood 3.44 mg/dL (0.40-1.00); Glucose, Blood 198 mg/dL (70-99); Phosphorus, Blood 3.8 mg/dL (2.5-4.9); Potassium, Blood 3.9 mmol/L (3.5-5.5); Sodium, Blood 135 mmol/L (136-145)
[2025-08-18] MEDS ORDERED: Vitamin B Cmplx/Vit C/Folic Ac 1 Tab PO SCH (09:30)
[2025-08-18] MEDS ORDERED: BUME2 PO (15:31)
[2025-08-18] MEDS ORDERED: B-COMPLEX WITH1 EAC2 PO (15:31)
[2025-08-18] MEDS ORDERED: BENZ100A PO (15:32)
--- NOTE | 2025-08-18 16:25 | NUR ---
DISCHARGE NOTE PT AND EDUCATED ON DISHCARGE PACKET AND INSTRUCTIONS AND NEW PRESCRIPTIONS. DIALYSIS CHAIR TIME ARRANGED MWF AT 11:10 AM. EDUCATED PT TO ARRIVE EARLY TO FIST APPT. IV REMOVED. NO NEW QUESTIONS OR CONCERNS PRIOR TO DC. EDITED HOME MED REC WE HAD INITIALLY INPUT WRONG. ESCORTED DOWNSTAIRS VIA WHEELCHAIR BY RN.
[2025-08-18 16:26] LABS: HEPATITIS B SURFACE ANTIBODY 30.16 IU/L
[2025-08-18 16:55] LABS: HBV CORE ANTIBODIES,TOTAL Positive (Negative)
[2025-08-20 04:06] LABS: QUANTIFERON MITOGEN MINUS NIL 9.97 IU/mL; QUANTIFERON NIL 0.03 IU/mL; QUANTIFERON PLUS TB1 MINUS NIL 0.04 IU/mL (<=0.34); QUANTIFERON PLUS TB2 MINUS NIL 0.05 IU/mL (<=0.34)
[2025-09-02] MEDS ORDERED: INSULANI SC (16:35)
== END 2025-08-18 16:07 | disposition home or self-care (01) | DRG 291 ==
LOC: ER 12:19 → MEDS 16:46
PROVIDERS: Hospitalist; Student in an Organized Health Care Education/Training Program; ADMIT Internal Medicine
PROC: 5A1D70Z Performance of Urinary Filtration, Intermittent, Less than 6 Hours Per Day (ICD-10-PCS; principal; 2025-08-17)
PROC: 0JH63XZ Insertion of Tunneled Vascular Access Device into Chest Subcutaneous Tissue and Fascia, Percutaneous Approach (ICD-10-PCS; 2025-08-17)
PROC: 02HV33Z Insertion of Infusion Device into Superior Vena Cava, Percutaneous Approach (ICD-10-PCS; 2025-08-17)
DX: I13.2 Hypertensive heart and chronic kidney disease with heart failure and with stage 5 chronic kidney disease, or end stage renal disease (principal); I50.33 Acute on chronic diastolic (congestive) heart failure; N18.6 End stage renal disease; D63.1 Anemia in chronic kidney disease; I25.10 Atherosclerotic heart disease of native coronary artery without angina pectoris; E11.22 Type 2 diabetes mellitus with diabetic chronic kidney disease; R79.89 Other specified abnormal findings of blood chemistry; E78.5 Hyperlipidemia, unspecified; K21.9 Gastro-esophageal reflux disease without esophagitis; Z88.8 Allergy status to other drugs, medicaments and biological substances; Z88.5 Allergy status to narcotic agent; I25.2 Old myocardial infarction; Z95.5 Presence of coronary angioplasty implant and graft; Z79.82 Long term (current) use of aspirin; Z79.02 Long term (current) use of antithrombotics/antiplatelets; Z79.4 Long term (current) use of insulin; Z87.891 Personal history of nicotine dependence
CPT/HCPCS: 36415; 71046; 76937; 80053; 80069; 82728; 82784; 82947; 83540; 83550; 83735; 83880; 84443; 84484; 85025; 85027; 85610; 86480; 86704; 87340; 93005; 93010; 99152; 99285-25; A9270; C1750; C1769; C1894; J1644; J2250; J3010; J7040; Q5106

== ENCOUNTER → 2025-09-01 | Outpatient (CLI) | payer OTHER ==
[~2025-09-01] MED LIST changes: +B-COMPLEX WITH1 EAC2 PO; +BENZ100A PO; +BUME2 PO
== END ==
LOC: LAB SHORT 15:15
DX: N18.6 End stage renal disease (principal)
CPT/HCPCS: 87040; 87077; 87147; 87186